=== PATIENT | male | born 1970 | race African-American/Black ===

== ENCOUNTER 2019-07-28 14:59 | Emergency (ER) | payer OTHER ==
[~2019-07-28] VITALS: Ht 185.4 cm; Wt 73.5 kg
[2019-07-28 15:03] VITALS: BP 126/70
--- NOTE | 2019-07-28 15:03 | NUR ---
Pt ambulated to chair
--- NOTE | 2019-07-28 15:03 | NUR ---
49/M presents ambulatory to ED, c/o R toe dried abrasion with swelling and pus, tender to touch, L toe abrasion well healed, s/p scraping toes on ground 1 week ago. +CMS. Pt denies fever/chills. Pt awake and alert, skin normal color warm and dry, rr even and unlabored.
[2019-07-28 16:19] VITALS: BP 118/68
== END 2019-07-28 16:19 | disposition home or self-care (01) ==
LOC: MED 14:59
DX: L03.90 Cellulitis, unspecified (principal)
CPT/HCPCS: 99283

== ENCOUNTER 2020-03-31 21:45 | Emergency (ER) | payer OTHER ==
--- NOTE | 2020-03-31 21:49 | NUR ---
PATIENT CALLED TO BE TRIAGE , NO RESPONSE PATIENT LEFT WITHOUT BEING SEEN BY DR. MEYER. NO FURTHER CARE PROVIDED FOR PATIENT.
--- NOTE | 2020-03-31 21:55 | NUR ---
CALLED FOR THE SECOND TIME NO RESPONSE.
--- NOTE | 2020-03-31 22:00 | NUR ---
CALLED FOR THIRD TIME NO RESPONSE
== END 2020-03-31 21:49 | disposition left against medical advice (07) ==
LOC: MED 21:45
DX: R05 Cough (principal); Z53.21 Procedure and treatment not carried out due to patient leaving prior to being seen by health care provider

== ENCOUNTER 2020-12-18 03:40 | Emergency (ER) | payer OTHER ==
[~2020-12-18] VITALS: Ht 185.4 cm; Wt 77.1 kg
[2020-12-18 03:42] VITALS: BP 137/80
--- NOTE | 2020-12-18 03:53 | NUR ---
patient to bed 1 ambulatory
--- NOTE | 2020-12-18 04:02 | NUR ---
patient ambulated to the bathroom with steady gait and for urine collection
[2020-12-18] MEDS ORDERED: DOXYCYCLINE 100 MG CAP PO SCH (04:05)
[2020-12-18] MEDS ORDERED: cefTRIAXone 1,000 MG in LIDOCAINE MPF 1% 2.1 ML IM ONE (04:05)
[2020-12-18] MEDS ORDERED: cefTRIAXone 1,000 MG VIAL ONE (04:19)
[2020-12-18] MEDS ORDERED: LIDOCAINE MPF 1% 5 ML ONE (04:19)
[2020-12-18] MEDS ORDERED: DOXY-487 PO (04:22)
[2020-12-18] MEDS ORDERED: CEPH-588 PO (04:22)
[2020-12-18 04:53] VITALS: BP 137/80
--- NOTE | 2020-12-18 04:53 | NUR ---
Patient discharged with v/s stable. Written and verbal after care instructions given and explained. Patient alert, oriented and verbalized understanding of instructions. Ambulatory with steady gait. All questions addressed prior to discharge. ID band removed. Patient advised to follow up with PMD. Rx of KEFLEX AND DOXYCYCLINE HYCLATE given. Patient educated on indication of medication including possible reaction and side effects. Opportunity to ask questions provided and answered.
== END 2020-12-18 04:53 | disposition home or self-care (01) ==
LOC: MED 03:40
DX: R36.9 Urethral discharge, unspecified (principal); R30.0 Dysuria
CPT/HCPCS: 81002; 96372; 99283; J0696; J2001

== ENCOUNTER 2022-02-11 14:52 | Emergency (ER) | payer OTHER ==
[~2022-02-11] VITALS: Ht 185.4 cm; Wt 80.9 kg
[~2022-02-11 14:52] MED LIST: CEPH-588 PO; DOXY-487 PO
[2022-02-11 15:14] VITALS: BP 135/87
--- NOTE | 2022-02-11 15:26 | NUR ---
BIB SELF C/O LEFT LOWER TOOTH PAIN X 1 WEEK.
[2022-02-11] MEDS ORDERED: AMOX500C25 PO (16:07)
[2022-02-11] MEDS ORDERED: IBUP-2213 PO (16:07)
[2022-02-11] MEDS ORDERED: BENZ20GE11 MM (16:07)
[2022-02-11 16:11] VITALS: BP 135/87
--- NOTE | 2022-02-11 16:11 | NUR ---
Patient discharged with v/s stable. Written and verbal after care instructions given and explained. Patient alert, oriented and verbalized understanding of instructions. Ambulatory with steady gait. All questions addressed prior to discharge. ID band removed. Patient advised to follow up with PMD. Rx of AMOXICILLIN, IBUPROFEN&ORAJEL 3X TOOTHACHE-DGUM GEL given. Patient educated on indication of medication including possible reaction and side effects. Opportunity to ask questions provided and answered.
== END 2022-02-11 16:11 | disposition home or self-care (01) ==
LOC: MED 14:52
DX: K02.9 Dental caries, unspecified (principal); R03.0 Elevated blood-pressure reading, without diagnosis of hypertension; Z79.899 Other long term (current) drug therapy
CPT/HCPCS: 99283

== ENCOUNTER 2023-04-20 20:37 | Emergency (ER) | payer SELFPAY ==
[~2023-04-20] VITALS: Ht 185.4 cm; Wt 85.7 kg
[~2023-04-20 20:37] MED LIST changes: +AMOX500C25 PO; +BENZ20GE11 MM; +CHLO473S62 MM; +IBUP-2213 PO
[2023-04-20 20:49] VITALS: BP 142/94; PULSE 76; RESP 18; TEMP 99.1; O2SAT 98
[2023-04-20 20:55] VITALS: O2SAT 98
[2023-04-20] MEDS ORDERED: ACETAMINOPHEN EXTRA STRENGTH 500 MG TAB ONE (21:32)
[2023-04-20] MEDS ORDERED: IBUP-2213 PO (21:33)
[2023-04-20] MEDS ORDERED: SULF-59 PO (21:33)
[2023-04-20] MEDS: ACETAMINOPHEN EXTRA STRENGTH 500 MG TAB PO ONE (21:44)
[2023-04-20 21:46] VITALS: BP 136/85; PULSE 74; RESP 17; TEMP 98.4; O2SAT 97
== END 2023-04-20 21:46 | disposition home or self-care (01) ==
LOC: MED 20:37
DX: L03.116 Cellulitis of left lower limb (principal); I10 Essential (primary) hypertension; Z79.899 Other long term (current) drug therapy
CPT/HCPCS: 99282